=== PATIENT | male | born 1995 | race African-American/Black ===

== ENCOUNTER 2019-09-11 13:06 | Emergency (ER) | payer OTHER ==
[~2019-09-11] VITALS: Ht 165.1 cm; Wt 79.8 kg
[2019-09-11 13:33] VITALS: BP 123/67; TEMP 97.3
== END 2019-09-11 15:15 | disposition home or self-care (01) ==
LOC: ED 13:06
DX: S60.462A Insect bite (nonvenomous) of right middle finger, initial encounter (principal); T63.301A Toxic effect of unspecified spider venom, accidental (unintentional), initial encounter; Y92.79 Other farm location as the place of occurrence of the external cause
CPT/HCPCS: 96372; 99283; J2930